=== PATIENT | male | born 1980 | race Caucasian/White ===

== ENCOUNTER 2021-01-25 00:24 | Emergency (ER) | payer OTHER ==
[~2021-01-25 00:24] MED LIST: HYDROCODON-ACE1 EAC8 PO; NORCO 5-325 TA1 EACH PO; ULTRAM50 MG PO
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
== END 2021-01-25 03:17 | disposition short-term general hospital (02) ==
LOC: ED 00:24
DX: S27.1XXA Traumatic hemothorax, initial encounter (principal); W45.8XXA Other foreign body or object entering through skin, initial encounter; Z20.822 Contact with and (suspected) exposure to COVID-19
CPT/HCPCS: 32551; 71045; 71260; 80053; 81001; 82150; 82553; 83605; 83690; 85025; 85610; 85730; 90471; 90715; 99285-25; C9803; G0480; J0690; J1170; J2405; J3010; J7030; J7121; Q9967; U0003

== ENCOUNTER 2021-02-04 23:15 | Emergency (ER) | payer OTHER ==
[~2021-02-04] VITALS: Ht 177.8 cm; Wt 108.9 kg
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
[2021-02-04] MEDS ORDERED: ACETAMINOPHEN500 MG PO (23:54)
[2021-02-04] MEDS ORDERED: SENEXON-S 50-81 EACH PO (23:54)
[2021-02-04] MEDS ORDERED: MINIPRESS2 MG PO (23:54)
[2021-02-04] MEDS ORDERED: IBUPROFEN600 MG (23:54)
== END 2021-02-05 01:30 | disposition home or self-care (01) ==
LOC: ED 23:15
DX: S21.102D Unspecified open wound of left front wall of thorax without penetration into thoracic cavity, subsequent encounter (principal); F17.200 Nicotine dependence, unspecified, uncomplicated; Z79.899 Other long term (current) drug therapy
CPT/HCPCS: 99282

== ENCOUNTER 2021-02-05 12:41 | Emergency (ER) | payer OTHER ==
[~2021-02-05] VITALS: Ht 177.8 cm; Wt 108.9 kg
[~2021-02-05 12:41] MED LIST changes: +ACETAMINOPHEN500 MG PO; +IBUPROFEN600 MG; +MINIPRESS2 MG PO; +SENEXON-S 50-81 EACH PO
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
== END 2021-02-05 13:30 | disposition home or self-care (01) ==
LOC: ED 12:41
DX: S21.102D Unspecified open wound of left front wall of thorax without penetration into thoracic cavity, subsequent encounter (principal); F17.200 Nicotine dependence, unspecified, uncomplicated; Z79.899 Other long term (current) drug therapy
CPT/HCPCS: 85025; 99283-25